=== PATIENT | male | born 1970 | race Caucasian/White ===

== ENCOUNTER 2020-05-26 15:09 | Emergency (ER) | payer OTHER ==
[~2020-05-26] VITALS: Ht 172.7 cm; Wt 90.2 kg
[2020-05-26] MEDS ORDERED: ONDANSETRON ODT 4 MG ONE (16:30)
[2020-05-26] MEDS ORDERED: ONDANSETRON ODT 4 MG PO ONE (16:30)
[2020-05-26] MEDS ORDERED: HYDROmorphone 1 MG/ML, 1ML INJ IM ONE (16:30)
[2020-05-26] MEDS ORDERED: PLEASE ENTER ALLERGIES MC SCH (16:30)
[2020-05-26] MEDS ORDERED: HYDROmorphone 1 MG/ML, 1ML INJ ONE (16:31)
[2020-05-26 16:41] VITALS: BP 123/68
--- NOTE | 2020-05-26 18:17 | NUR ---
PT READY FOR DC, STATES THAT HE WONT GO OUT IN WHEELCHAIR AND THAT HE NEEDS TO BE TAKEN VIA GURNEY. PT DISAGREEABLE WITH DC INSTRCUTIONS AND PRESCRIPTIONS, THIS RN ENCOURAGED PT TO FOLLOW UP WITH PCP IF HE WOULD LIKE SOMETHING DIFFERENT. [id number] IN ROOM TO ASSIST PT TO WHEELCHAIR, PT ABLE TO STAND AND TURN ON HIS OWN INTO CHAIR, ENOURAGED TO SIT PROPERLY INSTEAD OF ON KNEES FACING BACK OF CHAIR. PT ABLE TO TURN IN CHAIR WITHOUT ASSISTANCE, WHEELED BY STAFF TO DISCHARGE DESK. NO SIGNS OR SYMPTOMS OF ACUTE DSITRESS NOTED RESPIRATIONS EVEN AND UNLABORED
== END 2020-05-26 18:20 | disposition home or self-care (01) ==
LOC: ED 17:44
DX: G89.11 Acute pain due to trauma (principal); M54.5 Low back pain; M79.651 Pain in right thigh; M25.551 Pain in right hip
CPT/HCPCS: 96372; 99283; J1170; Q0162